=== PATIENT | male | born 1955 | race Caucasian/White ===

== ENCOUNTER 2018-09-13 10:57 | Outpatient (CLI) | payer OTHER, SELFPAY ==
--- NOTE | 2018-09-13 09:15 | DI.RAD_ITS ---
SYMPTOM/DIAGNOSIS: INTERNAL DERANGEMENT RT KNEE, M23.91, PAIN RIGHT KNEE: There is minimal angela-articular spurring. The joint spaces are well maintained. IMPRESSION: Mild degenerative changes.
== END 2018-09-13 11:17 ==
PROVIDERS: PCP Emergency Medicine; Visit Provider Family Medicine
DX: M23.91 Unspecified internal derangement of right knee (principal); M25.561 Pain in right knee; M17.11 Unilateral primary osteoarthritis, right knee
CPT/HCPCS: 73562

== ENCOUNTER 2018-09-21 01:20 | Outpatient (CLI) | payer OTHER, SELFPAY ==
--- NOTE | 2018-09-21 14:45 | DI.MRI_ITS ---
SYMPTOMS/DIAGNOSIS: RT KNEE PAIN, M25.561 MRI OF THE RIGHT KNEE: Routine noncontrast examination was performed. The anterior cruciate, posterior cruciate, lateral collateral ligament, extensor mechanism and medial and lateral retinaculum are intact. There is a small amount of fluid seen around the medial collateral ligament suggesting a grade I sprain. The lateral meniscus is intact. There is linear signal seen in the posterior horn of the medial meniscus which does appear to contact the inferior articular surface raising the question of a tear. The marrow signal is within normal limits. No evidence of an occult fracture or avascular necrosis. There is mild thinning of the articular cartilage overlying the medial patellar facet inferiorly with mild hyperintense signal in the subchondral bone. The articular cartilage is otherwise well maintained. No significant joint effusion is seen. No popliteal cyst is present. There is normal signal and size within the visualized muscle. IMPRESSION: 1. Findings suspicious for a grade I MCL sprain. 2. Abnormal signal seen in the posterior horn of the medial meniscus. Tear vs degeneration. 3. Mild degenerative change involving the medial patellar facet.
== END 2018-09-21 01:40 ==
PROVIDERS: PCP Emergency Medicine; Visit Provider Family Medicine
DX: M25.561 Pain in right knee (principal); S83.411A Sprain of medial collateral ligament of right knee, initial encounter
CPT/HCPCS: 73721

== ENCOUNTER 2019-03-09 09:22 | Outpatient (CLI) | payer OTHER, SELFPAY ==
[2019-03-10 12:19] LABS: PSA, Screening 1.3 ng/ml (0-4.5)
== END 2019-03-09 09:42 ==
PROVIDERS: PCP Emergency Medicine; Visit Provider Emergency Medicine
DX: Z12.5 Encounter for screening for malignant neoplasm of prostate (principal)
CPT/HCPCS: 36415; 84153

== ENCOUNTER 2020-03-09 21:39 | Outpatient (REF) | payer OTHER, SELFPAY ==
[2020-03-09 23:02] LABS: Bilirubin Negative (Negative); Blood Negative (Negative); Clarity Sl Cloudy (Clear); Glucose Negative (Negative); Ketones Negative (Negative); Leukocyte Esterase Negative (Negative); Nitrite Negative (Negative); Specific Gravity >= 1.030 (1.005-1.025); Urobilinogen 0.2 EU/dL (Up TO 0.2); pH 5.5 (5-8)
== END 2020-03-09 21:59 ==
LOC: LBN 21:39
PROVIDERS: PCP Emergency Medicine; Visit Provider Emergency Medicine
DX: Z00.00 Encounter for general adult medical examination without abnormal findings (principal); R82.998 Other abnormal findings in urine
CPT/HCPCS: 81003

== ENCOUNTER 2021-03-12 15:59 | Outpatient (REF) | payer OTHER, SELFPAY ==
[2021-03-12 14:34] LABS: Calculated LDL 121 mg/dL (<100); Cholesterol 188 mg/dL (<200); HDL Cholesterol 48 mg/dL (40-60); Triglyceride 97 mg/dL (<150)
== END 2021-03-12 16:00 | disposition home or self-care (01) ==
LOC: LBN 15:59
PROVIDERS: PCP Emergency Medicine; Visit Provider Emergency Medicine
DX: E78.5 Hyperlipidemia, unspecified (principal)
CPT/HCPCS: 80061

== ENCOUNTER 2021-09-20 03:09 | Outpatient (CLI) | payer OTHER, SELFPAY ==
[2021-09-20 10:47] LABS: Source Nasal/Nares
[2021-09-20 13:40] LABS: COVID-19 PCR Negative (Negative)
== END 2021-09-20 03:10 | disposition home or self-care (01) ==
LOC: LBO 03:09
PROVIDERS: PCP Emergency Medicine; Visit Provider Surgery
DX: Z20.822 Contact with and (suspected) exposure to COVID-19 (principal)
CPT/HCPCS: 87635

== ENCOUNTER 2021-09-23 09:15 | Day surgery (SDC) | payer OTHER, SELFPAY ==
--- NOTE | 2021-09-23 06:50 | W.COLOREPORT ---
Colonoscopy Report Date of procedure: 09/23/21 Pre-op diagnosis general: colon cancer screening Post-op diagnosis procedure note: same Procedure: Colonoscopy Surgeon: Aleshia Askew Anesthesia Type: General:No Airway (Cindy Hernández CRNA) Estimated blood loss (mL): 0 Pathology: none sent Complications: None Disposition: same day Indications: The patient is here for Colonoscopy pre-op. His last screening was in 2006 and was unremarkable. He has no family history of colon cancer. He has not had any bowel habit changes. -Discussed colonoscopy bowel prep as well as the procedure. Discussed possible complications of the procedure to include bleeding, pain, perforation, missed small lesion/polyp, sore throat, aspiration and adverse reaction to the medications. Questions were answered to patient?s satisfaction. No guarantees were implied or given. Prep: Miralax/Dulcolax Procedure Start Time: 10:37 Procedure End Time: 10:58 Retraction Time: 8 minutes Findings: Normal colon Procedure Description: After informed consent was obtained the patient was taken to the procedure room and placed in a left decubitous position. Monitors were applied and a time out was done. The patients name, date of , procedure, allergies to medications and metal in their body was reviewed. The patient was then sedated. Once sedated and comfortable a rectal exam was done. External exam was normal. Internal exam revealed a normal sphincter tone and no palpable masses. The prostate was smooth and slightly enlarged. The scope was then introduced and retro-flexed. No internal hemorrhoids, polyps or masses were identified on retro-flexion. The scope was then advanced to the cecum without difficulty. The ileocecal vlave and appendiceal orifice were identified. The prep was good. The scope was then slowly retracted over 8 minutes back into the rectum. There were no Polyps identified. There was no diverticulosis noted. The scope was removed and the patient was woken up and taken back to Same day surgery in stable condition. The patient tolerated the procedure well and there were no immediate complications. Follow up: The patient should follow up in 10 years unless they develop changes in bowel habits or other new gastrointestinal complaints.
--- NOTE | 2021-09-23 06:55 | W.PM.DSUDISC ---
Discharge Plan Disposition Patient Disposition: HOME Condition: Good Discharge Details Reason For Visit: Colonoscopy Attending Provider: Aleshia Askew Primary Care Provider: Benja Bernardo Home Meds and New Rx's Prescriptions: Continued pravastatin 20 mg tablet 20 mg PO DAILY Qty: 90 RF: 3 triamcinolone acetonide 0.5 % cream 1 applic topical BID Qty: 15 RF: 2 Discontinued bisacodyl [Dulcolax (bisacodyl)] 5 mg tablet,delayed release (DR/EC) 5 mg PO ONCE Qty: 4 RF: 0 polyethylene glycol 3350 17 gram/dose powder 238 g PO ONCE Qty: 238 RF: 0 Discharge Instructions Additional Instructions: Findings: Normal colon Follow up: 10 years Please call if you develop: fevers >101.5 Nausea or Vomiting Abdominal pain that is not transient Rectal bleeding that is more then a tbsp A hard abdomen and inability to pass gas DAY SURGERY UNIT POST ENDOSCOPY INSTRUCTIONS Instructions for everyone who is given Anesthesia: For your safety, please do the following for the next 24 Hours: a. Do not drive or operate dangerous equipment b. Do not drink alcohol beverages or use any recreational drugs for the first 24 hours or while taking pain medications. The medications in your body may have a reaction that can be dangerous. c. Do not make any important decisions or sign any important papers 1. Generally there are no restrictions on your activity after a day or so has gone by, but you may feel a bit fatigued for a few days. 2. After you arrive home you may have a light meal and return to a normal diet as you can tolerate it without feeling sick to your stomach. 3. After surgery, you may feel pain or discomfort. This should be only transient, but if it persists please contact your doctor. 4. If there are any questions regarding the findings of your procedure, please feel free to contact your doctor. 6. If you are unable to contact your doctor with a problem, contact the hospital at [phone]. 7. Continue all your regular medications unless directed otherwise. I understand the above instructions and have no questions. Signature of Patient or Responsible Adult Escort Date/Time Name of Responsible Adult Escort Signature of Nurse Date/Time Activity:: Activity as Tolerated Diet:: As Tolerated Discharge Orders Discharge Orders: Discharge Order (Routine); Ordered 09/23/21 Ordered By: Aleshia Askew
[2021-09-23 09:15] VITALS: BP 122/70; PULSE 54; RESP 16; TEMP 36.5; O2SAT 96
[2021-09-23] MEDS: Lactated Ringers 1,000 ML 80 ML IV (09:44)
--- NOTE | 2021-09-23 10:08 | W.ANESPRE ---
General Info Date of Service Date Performed: 09/23/21 Height: 5 ft 5 in Weight: 87 kg Body Mass Index (BMI): 31.8 Surgical Procedure: Operation Date: 09/23/21 11:05 Proposed Procedures Side Surgeon p Colonoscopy Aleshia Askew MD Meds Allergies and Home Medications Allergies Allergy/AdvReac Type Severity Reaction Status Date / Time No Known Allergies Allergy Verified 09/23/21 09:20 Home Medication Medication Instructions Recorded pravastatin 20 mg tablet 20 mg PO DAILY #90 tab-cap 03/12/21 triamcinolone acetonide 0.5 % 1 applic TOPICAL BID #15 g 08/12/21 topical cream bisacodyl 5 mg tablet,delayed 5 mg PO ONCE #4 tab 09/12/21 release polyethylene glycol 3350 17 238 g PO ONCE #238 g 09/12/21 gram/dose oral powder Current Visit Medications: Current Medications Generic Name Dose Route Start Last Admin Trade Name Freq PRN Reason Stop Dose Admin Hyoscyamine Sulfate 0.125 mg 09/23/21 06:56 Hyoscyamine 0.125 Mg Sl/Oral/Chew SL DIRECTED PRN Ringer's Solution 1,000 mls @ 80 mls/hr 09/23/21 06:00 09/23/21 09:44 IV 10/20/21 23:59 80 mls/hr INFUSION KATLIN Administration IV Miscellaneous Supplies 1 each 09/23/21 06:00 Iv Access IV 10/20/21 23:59 DIRECTED KATLIN Ondansetron HCl 4 mg 09/23/21 06:56 Ondansetron 4 Mg/2 Ml Vial IVP Q4H PRN PRN Nausea / Vomiting Sodium Chloride 0 ml 09/23/21 06:00 Normal Saline Flush 10 Ml Syr IV 10/20/21 23:59 PRN PRN Sodium Chloride 0 ml 09/23/21 06:00 Normal Saline 10 Ml Vial IJ 10/20/21 23:59 DIRECTED PRN Sterile Water 0 ml 09/23/21 06:00 Water,Injection,Sterile 10 Ml Vial IJ 10/20/21 23:59 DIRECTED PRN PFSH Active Problems Active Problems: Problem Status Onset Code Hyperlipidemia 10/26/13 E78.5 Family history of abdominal aortic aneurysm (AAA) 08/14/16 Z82.49 Tubular adenoma D36.9 Surgical History Surgical History (Updated 09/23/21 @ 09:29 by Kelle Cao) History of colonoscopy Tobacco Smoking/Tobacco Use Status: Never Passive smoking exposure: Yes Second hand exposure: No Alcohol Alcohol Intake: current Alcohol intake frequency: a few times a month Substance Use Substance use: Never Substance use type: does not use Vital Signs and Lab Results Vital Signs Most Recent Vital Signs in EMR: Most Recent Vital Signs Temp Pulse Resp BP Pulse Ox 36.5 C 54 L 16 122/70 96 09/23/21 09:15 09/23/21 09:15 09/23/21 09:15 09/23/21 09:15 09/23/21 09:15 Lab Results Blood Type / Crossmatch: No Data to Display Complete Blood Count: No Data to Display Complete Metabolic Panel: No Data to Display Liver Function Panel: No Data to Display Coagulation Panel: No Data to Display Cardiac Panel: No Data to Display Arterial Blood Gas: No Data to Display Venous Blood Gas: No Data to Display Pancreas Panel: No Data to Display Thyroid Panel: No Data to Display Infectious Disease: Coronavirus (COVID-19)(PCR) Negative (Negative) 09/20/21 09:13 09/20/21 Coronavirus 2019 Source Nasal/Nares 09/20/21 09:13 09/20/21 Blood Cultures: No Data to Display Toxicology Panel: No Data to Display Anesthesia Assessment and Plan Anesthesia History Personal History: No History of Anesthesia Complications Family History: No Family History of Anesthesia Complications Exercise Tolerance Exercise Tolerance: Metabolic Equivalents>4 Pertinent Negatives Pertinent Negatives: No Symptoms of GERD (Food related), No Major Cardiovascular Symptoms or Complaints, No Major Pulmonary Symptoms or Complaints and No History of CVA/TIA Cardiac & Pulmonary Exam Cardiac Exam: Normal S1/S2 Heart Sounds Pulmonary Exam: Clear Bilateral Breath Sounds Implantable Cardiac Device Does patient have a Pacemaker or an ICD?: No Airway Exam Known Difficult Airway: No Mallampati Class: 2 Mouth Opening: Normal (> 3cm) Thyromental Distance: Greater than 3 cm Neck Range of Motion: Full ROM Neck Circumference: Normal Teeth Condition: Normal Dentition ASA Classification ASA Score: ASA 2 Emergency Case?: No NPO Status NPO Status: NPO Clears >2 hours, Solids >8 hours Anesthesia Plan Resuscitation Status: Full Code Anesthesia Technique: General Anesthesia Airway Planned: Natural Airway Monitors Used: Standard Monitors
[2021-09-23 10:28] VITALS: BMI 31.8
[2021-09-23 11:05] VITALS: BP 121/81; PULSE 55; RESP 14; TEMP 36.4; O2SAT 95
[2021-09-23 11:30] VITALS: BP 120/77; PULSE 50; RESP 16; TEMP 36.4; O2SAT 94
--- NOTE | 2021-09-23 11:42 | W.ANESPOSTOP ---
Postoperative Evaluation Date, Time and Location Date Performed: 09/23/21 Time Performed: 11:42 Patient Location: Day Surgery Unit Vital Signs Most Recent Imported Vital Signs: Most Recent Vital Signs Temp Pulse Resp BP Pulse Ox 36.4 C L 50 L 16 120/77 94 09/23/21 11:30 09/23/21 11:30 09/23/21 11:30 09/23/21 11:30 09/23/21 11:30 Pain Score Most Recent Pain Score: Most Recent Pain Score Pain Level 0 09/23/21 11:30 Assessment Mental Status: Awake (Alert & Oriented to Patient Baseline) Airway and Respiratory Function: Patent airway with normal (patient baseline) respiratory exam Cardiovascular Function: Hemodynamically Stable Hydration Status: Adequately Hydrated Nausea & Vomiting: No Nausea or Vomiting Pain: Pt. Denies Any Pain Peripheral Nerve Block: Patient did not receive a nerve block
== END 2021-09-23 12:05 | disposition home or self-care (01) ==
LOC: SUR 09:15
PROVIDERS: PCP Emergency Medicine; Visit Provider Surgery
PROC: 0DJD8ZZ Inspection of Lower Intestinal Tract, Via Natural or Artificial Opening Endoscopic (ICD-10-PCS; CPT 45378; principal; 2021-09-23 11:00)
DX: Z12.11 Encounter for screening for malignant neoplasm of colon (principal); E78.5 Hyperlipidemia, unspecified
CPT/HCPCS: 45378; J2001

== ENCOUNTER 2023-04-08 03:43 | Outpatient (CLI) | payer OTHER, SELFPAY ==
[2023-04-08 11:02] LABS: Anion Gap 6.3 mmol/L (3-11); BUN 15 mg/dL (7-18); CO2 25.7 mmol/L (21.0-32.0); CREATININE 1.1 mg/dL (0.70-1.30); Calcium 9.1 mg/dL (8.5-10.1); Calculated LDL 100 mg/dL (<100); Chloride 108 mmol/L (98-107); Cholesterol 165 mg/dL (<200); Estimated GFR 74.04 (mL/min/1.73m2); Glucose 96 mg/dL (74-106); HDL Cholesterol 49 mg/dL (40-60); Potassium 3.8 mmol/L (3.5-5.1); Sodium 140 mmol/L (136-145); Triglyceride 81 mg/dL (<150)
== END 2023-04-08 03:44 | disposition home or self-care (01) ==
LOC: LOS 03:43
PROVIDERS: PCP Family Medicine; Visit Provider Family Medicine
DX: E78.5 Hyperlipidemia, unspecified (principal); E87.1 Hypo-osmolality and hyponatremia
CPT/HCPCS: 36415; 80048; 80061

== ENCOUNTER 2024-03-03 10:25 | Outpatient (CLI) | payer OTHER, SELFPAY ==
[2024-03-04 09:04] LABS: HIV-1/2 Ag & Ab Screen Negative (Negative)
[2024-03-04 09:17] LABS: Hepatitis C Ab w Rflx HCV PCR Negative (Negative)
[2024-03-04 09:25] LABS: HBs Antibody, Quant <3.1 mIU/mL (See Note); Hep B Surface Ab Negative (See Note); Hepatitis B Core Antibody Negative (Negative); Hepatitis B Surface Antigen Negative (Negative)
== END 2024-03-03 10:26 | disposition home or self-care (01) ==
LOC: LOS 10:25
PROVIDERS: PCP Family Medicine; Referring Provider Family Medicine; Visit Provider Family Medicine
DX: Z00.00 Encounter for general adult medical examination without abnormal findings (principal); Z11.59 Encounter for screening for other viral diseases
CPT/HCPCS: 36415; 86704; 86706; 86803; 87340; 87389

== ENCOUNTER 2025-03-07 08:32 | Outpatient (CLI) | payer OTHER, SELFPAY ==
[2025-03-07 12:19] LABS: Anion Gap 8.4 mmol/L (3-11); BUN 17 mg/dL (7-18); CO2 25.6 mmol/L (21.0-32.0); CREATININE 1.3 mg/dL (0.70-1.30); Calcium 9.2 mg/dL (8.5-10.1); Calculated LDL 125 mg/dL (<100); Chloride 105 mmol/L (98-107); Cholesterol 197 mg/dL (<200); Estimated GFR 59.84 (mL/min/1.73m2); Glucose 94 mg/dL (74-106); HDL Cholesterol 48 mg/dL (>or=40); Potassium 4.1 mmol/L (3.5-5.1); Sodium 139 mmol/L (136-145); Triglyceride 124 mg/dL (<150)
[2025-03-07 19:07] LABS: PSA, Screening 2.4 ng/mL (<=4.5)
== END 2025-03-07 08:33 | disposition home or self-care (01) ==
PROVIDERS: PCP Family Medicine; Referring Provider Family Medicine; Visit Provider Family Medicine
DX: E87.1 Hypo-osmolality and hyponatremia (principal); Z12.5 Encounter for screening for malignant neoplasm of prostate; E78.5 Hyperlipidemia, unspecified
CPT/HCPCS: 36415; 80048; 80061; 84153